=== PATIENT | male | born 1965 | race Native Hawaiian/Other Pacific Islander ===

== ENCOUNTER 2020-02-20 14:58 | Outpatient (CLI) | payer OTHER ==
[2020-02-20 16:08] LABS: POTASSIUM 4.3 mmol/L (3.6-5.2)
[2020-02-20 16:25] LABS: PLATELET COUNT 226 K/uL (142-355)
== END 2020-02-20 20:15 | disposition home or self-care (01) ==
LOC: LAB 14:58
PROVIDERS: Nurse Practitioner Family
DX: Z00.01 Encounter for general adult medical examination with abnormal findings (principal); R35.0 Frequency of micturition; M54.2 Cervicalgia; M54.6 Pain in thoracic spine
CPT/HCPCS: 80053; 80061; 84153; 84443; 85027; 85651; 86140

== ENCOUNTER 2020-06-01 14:21 | Outpatient (CLI) | payer OTHER | END 2020-06-01 20:47 | disposition home or self-care (01) | LOC: LAB 14:21 | PROVIDERS: ATTEND Physician Assistant | DX: E78.1 Pure hyperglyceridemia (principal); E78.00 Pure hypercholesterolemia, unspecified; Z13.29 Encounter for screening for other suspected endocrine disorder | CPT/HCPCS: 80061; 83036; 84443 ==

== ENCOUNTER 2020-09-10 16:59 | Outpatient (CLI) | payer OTHER | END 2020-09-10 20:01 | disposition home or self-care (01) | LOC: LAB 16:59 | PROVIDERS: ATTEND Nurse Practitioner Family | DX: N40.0 Benign prostatic hyperplasia without lower urinary tract symptoms (principal); E78.1 Pure hyperglyceridemia | CPT/HCPCS: 80061; 84153 ==

== ENCOUNTER 2020-10-28 16:14 | Outpatient (CLI) | payer OTHER | END 2020-10-28 23:06 | disposition home or self-care (01) | LOC: LAB 16:14 | PROVIDERS: ATTEND Nurse Practitioner Family | DX: N40.0 Benign prostatic hyperplasia without lower urinary tract symptoms (principal) | CPT/HCPCS: 36415; 84154 ==